=== PATIENT | female | born 1965 | race Two or more races ===

== ENCOUNTER 2019-11-24 14:21 | Emergency (ER) | payer SELFPAY ==
[~2019-11-24] VITALS: Ht 172.7 cm; Wt 100.0 kg
[2019-11-24 19:47] VITALS: BP 164/91
== END 2019-11-24 19:48 | disposition home or self-care (01) ==
LOC: ER 14:21
DX: S00.90XA Unspecified superficial injury of unspecified part of head, initial encounter (principal); R51 Headache; I10 Essential (primary) hypertension; Z98.890 Other specified postprocedural states; Z86.79 Personal history of other diseases of the circulatory system; X58.XXXA Exposure to other specified factors, initial encounter; Y93.89 Activity, other specified; Y92.89 Other specified places as the place of occurrence of the external cause; Y99.8 Other external cause status
CPT/HCPCS: 99284